=== PATIENT | male | born 1965 | race Asian ===

== ENCOUNTER 2023-04-09 06:27 | Day surgery (SDC) | payer OTHER ==
[~2023-04-09] VITALS: Ht 172.7 cm; Wt 53.6 kg
[2023-04-09] MEDS ORDERED: SODIUM CHLORIDE 0.9% 1,000 ML IV ONE (07:00)
[2023-04-09] MEDS ORDERED: APIX5TAB PO (07:12)
[2023-04-09] MEDS ORDERED: SITA25 PO (07:12)
[2023-04-09] MEDS ORDERED: ATOR40TA71 PO (07:12)
[2023-04-09] MEDS ORDERED: CHOL100062 PO (07:12)
[2023-04-09] MEDS ORDERED: LOSA-381 PO (07:12)
[2023-04-09] MEDS ORDERED: LEVO25TA9 PO (07:12)
[2023-04-09] MEDS ORDERED: SODIUM CHLORIDE 0.9% 1,000 ML ONE (07:35)
[2023-04-09] MEDS ORDERED: MIDAZOLAM HCL 2 MG/2 ML VIAL ONE (07:55)
[2023-04-09] MEDS ORDERED: FentaNYL CITRATE PF 100 MCG/2 ML VIAL ONE (07:55)
[2023-04-09 08:01] LABS: GLUCOMETER DEV NAME(LOC) SDS.; GLUCOSE,POINT OF CARE 146 MG/DL (70-110)
[2023-04-09 09:30] VITALS: PULSE 79; RESP 20; O2SAT 94
[2023-04-09] MEDS ORDERED: MethylPREDNISolone SOD SUCC 125 MG/2 ML VIAL IVP ONE (09:30)
== END 2023-04-09 11:55 | disposition home or self-care (01) ==
LOC: EDSEX 06:27 → SURGERY 06:27
PROVIDERS: ATTEND Internal Medicine Critical Care Medicine
DX: J38.4 Edema of larynx (principal); I10 Essential (primary) hypertension; B37.0 Candidal stomatitis; E11.9 Type 2 diabetes mellitus without complications; Z79.899 Other long term (current) drug therapy; Z98.890 Other specified postprocedural states; Z86.73 Personal history of transient ischemic attack (TIA), and cerebral infarction without residual deficits; Z79.82 Long term (current) use of aspirin
CPT/HCPCS: 31623; 82962; 87206; 87101; 87220; 87070; 31624; 71045; 87015; J3010; J2250; J2930; J7030; 88112